=== PATIENT | male | born 1960 | race African-American/Black ===

== ENCOUNTER 2024-12-27 08:05 | Emergency (ER) | payer MEDICAID ==
[~2024-12-27] VITALS: Ht 177.8 cm; Wt 90.7 kg
[~2024-12-27 08:05] MED LIST: AMLO10TA4 MT; CIPR-263 MT
[2024-12-27 08:07] VITALS: O2SAT 97
[2024-12-27 08:09] VITALS: BP 169/99; PULSE 98; RESP 16; TEMP 37.2; O2SAT 96
[2024-12-27] MEDS ORDERED: CODE473S7 MT (08:56)
== END 2024-12-27 09:10 | disposition home or self-care (01) ==
LOC: ER 08:05
DX: J06.9 Acute upper respiratory infection, unspecified (principal); B97.89 Other viral agents as the cause of diseases classified elsewhere; I10 Essential (primary) hypertension; Z79.899 Other long term (current) drug therapy; Z98.890 Other specified postprocedural states
CPT/HCPCS: 99283